=== PATIENT | male | born 1975 | race Caucasian/White ===

== ENCOUNTER 2016-06-26 20:12 | Emergency (ER) | payer BC ==
[2016-06-26] MEDS ORDERED: SODIUM CHLORIDE 0.9% 1,000 ML IV ONE (20:30)
[2016-06-26] MEDS ORDERED: ACETAMINOPHEN IV (For NPO) 1,000 MG in EMPTY BAG 1 BAG IVPB STA (20:41)
--- NOTE | 2016-06-26 20:43 | ED ---
General Adult HPI - General Chief complaint: Upper Respiratory Infection Stated complaint: Diff breathing/Cough Time Seen by Provider: 06/26/16 20:28 Source: patient, RN notes reviewed Mode of arrival: ambulatory Limitations: no limitations - History of Present Illness Initial comments: 40-year-old male presenting for cough and fever. Patient states that he was seen this past Tuesday by his PCP for similar symptoms. He states he is placed on a Z-Rufus at that time. States symptoms seemed to improve over the next few days however over the past 2-3 days symptoms return he had return of fevers. He is coughing up yellow phlegm. He states there is mild shortness of breath associated. He denies any chest pain associated. He denies any tobacco use. Denies any history of pulmonary disease. He did finish his course of Z-Rufus. - Related Data Previous Rx's Medication Instructions Recorded Doxycycline Hyclate 100 mg PO BID 7 Days 06/26/16 Allergies Allergy/AdvReac Type Severity Reaction Status Date / Time No Known Allergies Allergy Verified 06/26/16 20:23 Review of Systems ROS Statement: Those systems with pertinent positive or pertinent negative responses have been documented in the HPI. ROS Other: All systems not noted in ROS Statement are negative. Past Medical History Past Medical History: No Reported History History of Any Multi-Drug Resistant Organisms: None Reported Past Surgical History: No Surgical Hx Reported Past Psychological History: No Psychological Hx Reported Smoking Status: Never smoker Past Alcohol Use History: Occasional Past Drug Use History: None Reported General Exam - General Exam Comments Initial Comments: General: Awake and Alert. No acute distress. Does not appear acutely ill. Eyes: CHELLE, EOM intact. No nystagmus. No scleral icterus. HENT: Atraumatic, normocephalic. Mucous membranes moist. Trachea midline. Neck: The neck is supple, there is no tenderness or JVD. Cardiovascular: Regular rhythm. Tachycardic. No murmur, rub, or gallop is appreciated. Distal pulses intact. Respiratory: Lungs are clear to auscultation bilaterally. No wheezes, rales, rhonchi. No respiratory distress. Gastrointestinal: Soft, Nontender. No rebound or guarding. Non-distended. No masses or organomegaly noted. No CVA tenderness. Musculoskeletal: No tenderness. Normal ROM. No gross deformity. No strength deficits. Neurological: A&Ox3. CN II-XII grossly intact, There are no obvious motor or sensory deficits. Coordination appears grossly intact. Speech is normal. Skin: Skin is warm and dry and no rashes or lesions are noted. Psychiatric: Cooperative, appropriate mood & affect, normal judgment. Limitations: no limitations Course Vital Signs 06/26/16 06/26/16 20:23 22:26 Temperature 102.5 F H 102.3 F H Pulse Rate 120 H 92 Respiratory 20 18 Rate Blood Pressure 134/80 101/57 O2 Sat by Pulse 97 95 Oximetry Medical Decision Making - Medical Decision Making 40-year-old male presenting for cough and congestion and fever. Initial vitals with fever and tachycardia. Patient clinically appears stable without evidence of sepsis this time. He was given IV fluids and IV Tylenol. Lab workup ordered. Chest x-ray with possible interstitial pneumonia. Influenza B-positive. Labs a stable CBC, stable BMP, negative lactate. Patient reevaluated and states feeling improved. He states he does have a sore throat. Given IV Decadron for symptomatic management of upper respiratory symptoms. Discussed possibility of bacterial superinfection and setting of influenza B. Plan to cover with doxycycline for possible interstitial pneumonia. Discussed there is also possibility this is viral pneumonia. Patient does not appear in respiratory distress or hypoxia. He has no history of COPD or asthma. Patient appears stable for discharge at this time. Discussed Motrin or Tylenol for fever management home. Discussed close follow- up with PCP. Discussed concerning signs and symptoms for immediate return to the ED. Patient is agreeable with plan and discharge home - Lab Data Result diagrams: 06/26/16 20:54 06/26/16 20:54 Lab Results 06/26/16 06/26/16 06/26/16 Range/Units 20:54 20:54 20:54 WBC 4.6 (3.8-10.6) k/uL RBC 4.68 (4.30-5.90) m/uL Hgb 14.4 (13.0-17.5) gm/dL Hct 40.8 (39.0-53.0) % MCV 87.2 (80.0-100.0) fL MCH 30.7 (25.0-35.0) pg MCHC 35.2 (31.0-37.0) g/dL RDW 12.7 (11.5-15.5) % Plt Count 143 L (150-450) k/uL Neutrophils % 72 % Lymphocytes % 19 % Monocytes % 5 % Eosinophils % 1 % Basophils % 0 % Neutrophils # 3.3 (1.3-7.7) k/uL Lymphocytes # 0.9 L (1.0-4.8) k/uL Monocytes # 0.3 (0-1.0) k/uL Eosinophils # 0.0 (0-0.7) k/uL Basophils # 0.0 (0-0.2) k/uL Sodium 142 (137-145) mmol/L Potassium 4.1 (3.5-5.1) mmol/L Chloride 103 (98-107) mmol/L Carbon Dioxide 27 (22-30) mmol/L Anion Gap 12 mmol/L BUN 11 (9-20) mg/dL Creatinine 0.79 (0.66-1.25) mg/dL Est GFR (MDRD) Af Amer >60 (>60 ml/min/1.73 sqM) Est GFR (MDRD) Non-Af >60 (>60 ml/min/1.73 sqM) Glucose 103 H (74-99) mg/dL Plasma Lactic Acid Edward (0.7-2.0) mmol/L Calcium 9.1 (8.4-10.2) mg/dL Influenza Type A RNA Not Detected (Not Detectd) Influenza Type B (PCR) Detected H (Not Detectd) 06/26/16 Range/Units 20:54 WBC (3.8-10.6) k/uL RBC (4.30-5.90) m/uL Hgb (13.0-17.5) gm/dL Hct (39.0-53.0) % MCV (80.0-100.0) fL MCH (25.0-35.0) pg MCHC (31.0-37.0) g/dL RDW (11.5-15.5) % Plt Count (150-450) k/uL Neutrophils % % Lymphocytes % % Monocytes % % Eosinophils % % Basophils % % Neutrophils # (1.3-7.7) k/uL Lymphocytes # (1.0-4.8) k/uL Monocytes # (0-1.0) k/uL Eosinophils # (0-0.7) k/uL Basophils # (0-0.2) k/uL Sodium (137-145) mmol/L Potassium (3.5-5.1) mmol/L Chloride (98-107) mmol/L Carbon Dioxide (22-30) mmol/L Anion Gap mmol/L BUN (9-20) mg/dL Creatinine (0.66-1.25) mg/dL Est GFR (MDRD) Af Amer (>60 ml/min/1.73 sqM) Est GFR (MDRD) Non-Af (>60 ml/min/1.73 sqM) Glucose (74-99) mg/dL Plasma Lactic Acid Edward 1.3 (0.7-2.0) mmol/L Calcium (8.4-10.2) mg/dL Influenza Type A RNA (Not Detectd) Influenza Type B (PCR) (Not Detectd) - Radiology Data Radiology results: report reviewed, image reviewed Disposition Clinical Impression: Influenza B, Pneumonia Disposition: HOME SELF-CARE Condition: Stable Instructions: Influenza (ED), Pneumonia (ED) Prescriptions: Doxycycline Hyclate 100 mg PO BID 7 Days Referrals: Reginald Paula MD [Primary Care Provider] - 1-2 days Time of Disposition: 22:04
[2016-06-26] MEDS ORDERED: ONDANSETRON 4 MG/2 ML VIAL IVP STA (21:00)
[2016-06-26 21:14] LABS: Basophils % (A) 0 %; CH 30.8; CHCM 35.5; Eosinophils % (A) 1 %; HCT 40.8 % (39.0-53.0); HDW 2.92; HGB 14.4 gm/dL (13.0-17.5); Luc # (Auto) 0.08; Luc % (Auto) 2; Lymphocytes # (A) 0.9 k/uL (1.0-4.8); Lymphocytes % (A) 19 %; MCH 30.7 pg (25.0-35.0); MCHC 35.2 g/dL (31.0-37.0); MCV 87.2 fL (80.0-100.0); Mean Platelet Volume 7.7; Monocytes # (A) 0.3 k/uL (0-1.0); Monocytes % (A) 5 %; Neutrophils # (A) 3.3 k/uL (1.3-7.7); Neutrophils % (A) 72 %; RBC 4.68 m/uL (4.30-5.90); RDW 12.7 % (11.5-15.5); WBC 4.6 k/uL (3.8-10.6); WBC (Perox) 4.46
[2016-06-26 21:27] LABS: Anion Gap 12 mmol/L; Blood Urea Nitrogen 11 mg/dL (9-20); Calcium 9.1 mg/dL (8.4-10.2); Carbon Dioxide 27 mmol/L (22-30); Chloride 103 mmol/L (98-107); Glucose 103 mg/dL (74-99); Non-African American GFR(MDRD) >60 (>60 ml/min/1.73 sqM); Potassium 4.1 mmol/L (3.5-5.1); Sodium 142 mmol/L (137-145)
--- NOTE | 2016-06-26 21:27 | XR ---
EXAMINATION TYPE: XR chest 2V DATE OF EXAM: 06/26/2016 9:18 PM COMPARISON: NONE HISTORY: Cough and fever TECHNIQUE: Frontal and lateral views of the chest are obtained. FINDINGS: Heart is enlarged. There is no gross heart failure. There is coarsening of interstitial ma rkings. There is no pleural effusion. Bony thorax appears intact. IMPRESSION: Mild pulmonary interstitial density without consolidation or heart failure. This is nons pecific and could relate to interstitial pneumonia.
[2016-06-26] MEDS ORDERED: DEXAMETHASONE SOD PHOSPHATE 10 MG/ML 1 ML VIAL IV STA (22:12)
[2016-06-26 22:29] VITALS: BP 101/57; PULSE 92; RESP 18; TEMP 102.3
== END 2016-06-26 22:29 | disposition home or self-care (01) ==
LOC: EC 20:12
DX: J10.1 Influenza due to other identified influenza virus with other respiratory manifestations (principal); J18.9 Pneumonia, unspecified organism
CPT/HCPCS: 36415; 80048; 83605; 85025; 87502; 71020; 99283; 96374; 96375 ×2; 96361; J1100; J2405; J0131